=== PATIENT | female | born 1945 | race Two or more races ===

== ENCOUNTER 2018-01-14 16:35 | Emergency (ER) | payer MEDICAID ==
[~2018-01-14] VITALS: Ht 157.5 cm; Wt 59.0 kg
--- NOTE | 2018-01-14 17:50 | NUR ---
PT DIRECTED TO ED BED 06 AT THIS TIME.
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
[2018-01-14] MEDS ORDERED: FLUORESCEIN SODIUM OPHTH 1 EA STRIP ONE (18:39)
[2018-01-14] MEDS ORDERED: ACETAMINOPHEN 325 MG TABLET ONE (18:52)
[2018-01-14 18:56] LABS: BASOPHILS # (AUTO) 0.1 /CMM (0.0-0.2); BASOPHILS % (AUTO) 0.8 % (0.0-2.0); EOSINOPHILS % (AUTO) 0.1 % (0.0-6.0); HEMATOCRIT 39 % (33-45); HEMOGLOBIN 12.9 g/dL (11.5-14.8); LYMPHOCYTES % (AUTO) 27.7 % (20.0-44.0); MEAN CORPUSCULAR HEMOGLOBIN 29 PG (26.0-33.0); MEAN CORPUSCULAR HGB CONC 33 g/dl (31.0-36.0); MEAN CORPUSCULAR VOLUME 86 fL (82-100); MONOCYTES # (AUTO) 0.4 /CMM (0.1-1.30); MONOCYTES % (AUTO) 5.3 % (2.0-12.0); NEUTROPHILS # (AUTO) 4.6 /CMM (1.8-8.9); NEUTROPHILS % (AUTO) 66.1 % (43.0-81.0); PLATELET COUNT (AUTO) 239 /CMM (150-450); RDW COEFFICIENT OF VARIATION 13.4 (11.5-15.0); RED BLOOD CELL COUNT(AUTO) 4.52 MIL/uL (4.0-5.2); WHITE BLOOD COUNT (AUTO) 7.1 K/uL (4.3-11.0)
[2018-01-14] MEDS ORDERED: TETRACAINE HCL/PF 0.5% UD 2 ML BOTTLE LEFTEYE ONE (19:00)
[2018-01-14] MEDS ORDERED: ACETAMINOPHEN 325 MG TABLET PO ONE (19:00)
[2018-01-14] MEDS ORDERED: FLUORESCEIN SODIUM OPHTH 1 EA STRIP OP ONE (19:00)
[2018-01-14 19:07] LABS: CALCIUM, SERUM 8.8 mg/dL (8.5-10.1); CARBON DIOXIDE 30 mmol/L (21-32); CHLORIDE 106 mmol/L (98-107); CREATININE 0.8 mg/dL (0.6-1.3); GLUCOSE 94 mg/dL (74-106); POTASSIUM 3.5 mmol/L (3.5-5.1); SODIUM SERUM 138 mmol/L (136-145); UREA NITROGEN, BLOOD 9 mg/dL (7-18)
[2018-01-14 19:59] LABS: APPEARANCE,URINE Clear (CLEAR); BILIRUBIN,URINE Negative (NEGATIVE); BLOOD, URINE Moderate Ery/uL (NEGATIVE); COLOR,URINE Yellow (YELLOW); KETONES,URINE Negative (NEGATIVE); LEUKOCYTE ESTERASE ,URINE Negative (NEGATIVE); NITRITE, URINE Negative (NEGATIVE); PROTEIN,URINE Negative (NEGATIVE); UGLUCOSE Negative (NEGATIVE); UROBILINOGEN,URINE 0.2 EU/dL (0.2)
[2018-01-14 20:06] LABS: BACTERIA,URINE Few /HPF (None Seen); SQUAMOUS EPITHELIAL CELL,UR Few /HPF (None Seen); WBC,URINE 0-2 /HPF (0-3)
--- NOTE | 2018-01-14 20:43 | NUR ---
CALLED [facility] FOR TRANSPORT BACK TO [facility], ETA 1 HOUR, TRIP [phone]
--- NOTE | 2018-01-14 22:42 | NUR ---
NEW ETA FOR [facility], 15 MIN
--- NOTE | 2018-01-14 23:18 | NUR ---
REPORT GIVEN TO [facility] UPDATE ABOUT THE PT STATUS BACK TO [facility]. PT IS AOX2 PERIODS OF FORGETFUL. VSS
[2018-01-15 01:14] VITALS: BP 130/60
== END 2018-01-15 01:15 | disposition home or self-care (01) ==
LOC: ER 16:38
DX: H54.62 Unqualified visual loss, left eye, normal vision right eye (principal); R31.9 Hematuria, unspecified; H18.9 Unspecified disorder of cornea; I65.23 Occlusion and stenosis of bilateral carotid arteries; R51 Headache; H57.12 Ocular pain, left eye; F03.90 Unspecified dementia, unspecified severity, without behavioral disturbance, psychotic disturbance, mood disturbance, and anxiety; K21.9 Gastro-esophageal reflux disease without esophagitis; F20.0 Paranoid schizophrenia; H40.9 Unspecified glaucoma
CPT/HCPCS: 36415; 70450-TC; 70480-TC; 72125-TC; 80048-TC; 81000-TC; 85025-TC; 85730-TC; A4606; Z7610